=== PATIENT | male | born 1955 | race Caucasian/White ===

== ENCOUNTER 2018-10-18 19:42 | Emergency (ER) | payer BC ==
[~2018-10-18] VITALS: Ht 190.5 cm; Wt 96.6 kg
[2018-10-18] MEDS ORDERED: LEVOTHYROXINE75 MCG ORAL (20:05)
[2018-10-18] MEDS ORDERED: LISINOPRIL20 MG ORAL (20:05)
--- NOTE | 2018-10-18 20:09 | NUR ---
ED Nurse Note: Patient walk in c/o left hand pain. Patient states he fell 1x hour ago. Deformity noted on left pinky. Patient states he hit his head. Patient denies LOC or N/V. AO4. NAD. Accompanied by family members.
[2018-10-18] MEDS ORDERED: Lidocaine 1% MPF 10mg/ml 5ml INJ ONE (20:30)
--- NOTE | 2018-10-18 21:16 | Emergency Room Report ---
History of Present Illness General Chief Complaint: Upper Extremity Injury Source: Patient Present Illness HPI Patient slipped getting out of the sauna. He hit his head and also landed on his left hand. There is deformity of his little finger and pain. He's certain he did not pass out. There i he reports the pain in his finger 4/10. He denies any numbness s a bump on his head that's not that tender.. There is no wrist or shoulder pain. Denies chest pain, palpitations, nausea, vomiting, diarrhea, dysuria, rashes, fever or chills. History of hypertension and hypothyroidism. Allergies: Coded Allergies: No Known Allergies (Unverified , 10/18/18) Patient History Past Medical History: see triage record Past Surgical History: santhosh Social History: Denies: smoking Social History Narrative From [place] Reviewed Nursing Documentation: PMH: Agreed; PSxH: Agreed Nursing Documentation-PMH Past Medical History: No History, Except For Hx Cardiac Problems: No - hypothyroid Hx Hypertension: Yes Hx Gastrointestinal Problems: Yes - gallbladder surgery Review of Systems All Other Systems: negative except mentioned in HPI Physical Exam Vital Signs Date Time Temp Pulse Resp B/P (MAP) Pulse Ox O2 Delivery O2 Flow Rate FiO2 10/18/18 20:00 98.4 64 16 161/102 97 Room Air Sp02 EP Interpretation: reviewed, normal General Appearance: well appearing, no apparent distress, alert, GCS 15 Head: normocephalic, other - Tender area left occiput no hematoma Eyes: bilateral eye normal inspection, bilateral eye PERRL, bilateral eye EOMI ENT: hearing grossly normal, normal voice, moist mucus membranes Neck: full range of motion, supple, no bony tend Respiratory: chest non-tender, lungs clear, normal breath sounds, no respiratory distress, speaking full sentences Cardiovascular #1: regular rate, rhythm Cardiovascular #2: 2+ radial (L) - Good capillary refill little finger Gastrointestinal: normal inspection Musculoskeletal: back normal, gait/station normal, no calf tenderness, swelling - Deformity and shortening of left little finger Neurologic: alert, oriented x3, normal gait, grossly normal Psychiatric: mood/affect normal Skin: no rash Procedures Joint Reduction Joint Reduction : Joint Reduction Site: other - left little finger Procedural Sedation: No Reduction Attempts: One Pre-Procedure NV Exam: Yes Post-Procedure NV Exam: Yes - digital block Post Joint Reduction Film: Joints reduced and possible fracture posterior distal phalange. This was better reviewed the pre-reduction film. Patient Tolerated: Well Complications: None Progress Betadine prep. Digital block with 5 mils of lidocaine without epinephrine. Both joints were reduced with traction and flexion. Good anatomic alignment after reduction. Medical Decision Making Diagnostic Impression: Primary Impression: Closed dislocation of left little finger ER Course Patient presents post fall with head contusion and little finger deformity. Differential includes fracture versus dislocation. X-rays and analgesia are indicated. Complete history and physical were performed and ascertained that the patient did not have syncope or concussion. There may be slight decreased sensation in the radial side of the little finger. X-rays revealed dislocation of the distal in the middle interphalangeal joints of the left little finger. There is a possible fracture of the posterior aspect of the distal phalange. See procedure note. The joints were reduced and the patient tolerated this well. Splint applied by tech, this was adjusted by me and taped. Vasc intact, still with digital block. Sling applied. Discussed outpatient follow-up and treatment. Patient stable for outpatient observation and treatment. Other X-Ray Diagnostic Results Other X-Ray Diagnostic Results #1: X-Ray ordered: L hand # of Views/Limited Vs Complete: 3 View Indication: Pain Interpretation: other - dislocations and possible fx + STS Impression: Other Electronically Signed by: Electronically signed by Patrick Marques MD Other X-Ray Diagnostic Results #2: X-Ray ordered: L hand # of Views/Limited Vs Complete: 2 View Indication: Other EP Interpretation: Yes Interpretation: no dislocation, other - possible fx, STS Impression: Other Electronically Signed by: Electronically signed by Patrick Marques MD Last Vital Signs Date Time Temp Pulse Resp B/P (MAP) Pulse Ox O2 Delivery O2 Flow Rate FiO2 10/18/18 22:55 98.4 68 16 161/102 97 Room Air Status: improved Disposition: HOME, SELF-CARE Condition: Improved Scripts Ibuprofen* (MOTRIN*) 600 Mg Tablet 600 MG ORAL Q6H PRN for For Pain, #16 TAB Prov: Patrick Marques MD 10/18/18 Tramadol Hcl* (ULTRAM*) 50 Mg Tablet 50 MG ORAL Q6H PRN for For Pain, #8 TAB 0 Refills Prov: Patrick Marques MD 10/18/18 Referrals: NOT CHOSEN IPA/,REFERRING (PCP) Patrick Marques MD Oct 18, 2018 21:16
[2018-10-18 21:23] VITALS: BP 161/102
--- NOTE | 2018-10-18 22:00 | Diagnostic Imaging Report ---
ADDENDUM - Added by Du Hurtado MD on 10/18/2018 11:22 PM (-10:00) Avulsion fracture of the proximal aspect of the distal phalanx of the fifth digit with intra-articular extension. EXAM: XR Left Hand Complete, 3 or More Views CLINICAL HISTORY: TRAUMA TECHNIQUE: Frontal, lateral and oblique views of the left hand. COMPARISON: No relevant prior studies available. FINDINGS: Bones/joints: Subluxation/dislocation of the proximal and distal interphalangeal joint of the fifth digit. No acute fracture. Soft tissues: Unremarkable. No radiopaque foreign body. IMPRESSION: Subluxation/dislocation of the proximal and distal interphalangeal joint of the fifth digit. [employer] 10/18/18 23:30 Verify Receipt Verified receipt with Dr. Tatiana ROWLAND on 10/18 23:29 (-08:00)
[2018-10-18] MEDS ORDERED: TRAMADOL HCL50 MG ORAL (22:51)
[2018-10-18] MEDS ORDERED: IBUPROFEN600 MG ORAL (22:51)
[2018-10-18 22:55] VITALS: BP 161/102
--- NOTE | 2018-10-18 22:55 | NUR ---
ED Nurse Note: Patient cleared for discharge per ERMD. AO4. NAD. VSS. Accompanied by family members. Patient given prescriptions and discharge instructions; verbalized understanding. ID band removed. Patient ambulated out with all personal belongings with steady gait.
--- NOTE | 2018-10-18 23:22 | Diagnostic Imaging Report ---
EXAM: XR Left Hand Complete, 3 or More Views CLINICAL HISTORY: POST-OP TECHNIQUE: Frontal, lateral and oblique views of the left hand. COMPARISON: No relevant prior studies available. FINDINGS: Bones/joints: Status post reduction of the previously described proximal and distal interphalangeal joint subluxation/dislocation of the fifth digit. Nondisplaced fracture of the proximal aspect of the distal phalanx of the fifth digit. Soft tissues: Unremarkable. No radiopaque foreign body. IMPRESSION: Successful reduction of the previously described subluxation/dislocation of the fifth digit. Non-displaced fracture of the proximal aspect of the distal pharynx of the fifth digit, which was seen on the prior radiograph.
== END 2018-10-18 22:55 | disposition home or self-care (01) ==
LOC: EMR 20:30
DX: S63.257A Unspecified dislocation of left little finger, initial encounter (principal); W01.0XXA Fall on same level from slipping, tripping and stumbling without subsequent striking against object, initial encounter; Y92.9 Unspecified place or not applicable; R22.0 Localized swelling, mass and lump, head; I10 Essential (primary) hypertension; E03.9 Hypothyroidism, unspecified; Z90.49 Acquired absence of other specified parts of digestive tract
CPT/HCPCS: 99283